=== PATIENT | male | born 2000 | race Caucasian/White ===

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

== ENCOUNTER 2022-02-07 04:24 | Emergency (ER) | payer MEDICAID ==
[2022-02-07] MEDS ORDERED: LACTATED RINGERS 1,000 ML IV STA (04:41)
[2022-02-07] MEDS ORDERED: diphenhydrAMINE 50 MG/ML INJ (BENADRYL) IM ONE (04:45)
[2022-02-07] MEDS ORDERED: MIDAZOLAM 2 MG/2 ML (VERSED) VIAL IM ONE (04:45)
[2022-02-07] MEDS ORDERED: HALOPERIDOL 5 MG/ML (HALDOL) VIAL IM ONE (04:45)
--- NOTE | 2022-02-07 04:48 | ED General ---
General Stated Complaint: AMS Source of Information: Patient, EMS Exam Limitations: Intoxication (ROGE CAI MD) History of Present Illness Date Seen by Provider: Feb 07, 2022 Time Seen by Provider: 04:28 Initial Comments 21-year-old male with no pertinent past medical history brought in via EMS naked and intoxicated. The patient apparently knocked on a strangers door trying to get inside and they called 911. He was obviously intoxicated on EMS arrival, essentially obtunded. They did a sternal rub and he became very agitated requiring multiple males to hold him down. He received 5 mg of IM Ativan which helped somewhat. Woke back up and became agitated again when he felt the cold air. The patient is denying any drug use. He is denying any symptoms at this time including any pain anywhere. (ROGE CAI MD) Allergies and Home Medications Allergies Coded Allergies: Penicillins (Verified Allergy, Unknown, 02/07/22) Patient Home Medication List Home Medication List Reviewed: Yes (ROGE CAI MD) Amoxicillin (Amoxicillin) 500 Mg Capsule, 1 EACH PO TID Prescribed by: ANIL SAINZ on 10/21/122007 Sodium Chloride ([place] Nasal [place]) 45 Ml Soln, 0 NA UD Prescribed by: ANIL SAINZ on 10/21/122007 Review of Systems Review of Systems Constitutional: No fever EENTM: no symptoms reported Respiratory: no symptoms reported Cardiovascular: no symptoms reported Gastrointestinal: no symptoms reported Genitourinary: no symptoms reported Musculoskeletal: no symptoms reported Skin: no symptoms reported Psychiatric/Neurological: See HPI Hematologic/Lymphatic: No Symptoms Reported Immunological/Allergic: no symptoms reported (ROGE CAI MD) All Other Systems Reviewed Negative Unless Noted: Yes (ROGE CAI MD) Past Tiriesu-Yzlguh-[id number] Hx Patient Social History Substance use?: Yes (ROGE CAI MD) Immunizations Up To Date Tetanus Booster (TDap): Less than 5yrs PED Vaccines UTD: Yes (ROGE CAI MD) Seasonal Allergies Seasonal Allergies: No (ROGE CAI MD) Past Medical History Surgeries: No Respiratory: No Cardiac: No Neurological: No Reproductive Disorders: No Genitourinary: No Gastrointestinal: No Musculoskeletal: No Endocrine: No HEENT: No Cancer: No Anxiety Integumentary: No Blood Disorders: No Adverse Reaction/Blood Tranf: No (ROGE CAI MD) Physical Exam Vital Signs Vital Signs - First Documented 02/07/22 05:32 Pulse 121 Resp 16 B/P (MAP) 126/69 (88) Pulse Ox 99 O2 Delivery Room Air ([facility]) Vital Signs Capillary Refill : (ROGE CAI MD) Height, Weight, BMI Height: 5'0" Weight: 82lbs. oz. 37.619298ib; 22.00 BMI Method:Stated General Appearance: No Apparent Distress, WD/WN, Other (Clinically intoxicated) Eyes: Bilateral Eye Normal Inspection, Bilateral Eye PERRL HEENT: PERRL/EOMI, Normal ENT Inspection, Pharynx Normal Neck: Full Range of Motion, Normal Inspection, Non Tender, Supple Respiratory: Chest Non Tender, Lungs Clear, Normal Breath Sounds, No Accessory Muscle Use, No Respiratory Distress Cardiovascular: Regular Rate, Rhythm, No Edema, Normal Peripheral Pulses Gastrointestinal: Normal Bowel Sounds, Non Tender, Soft; No Distended, No Guarding Back: Normal Inspection, No CVA Tenderness Extremity: Normal Capillary Refill, Normal Inspection, Normal Range of Motion, Non Tender, No Calf Tenderness, No Pedal Edema Neurologic/Psychiatric: Alert, No Motor/Sensory Deficits, Other (Flat affect, slurring speech, appears intoxicated but follows commands) Skin: Normal Color, Warm/Dry Lymphatic: No Adenopathy (ROGE CAI MD) Progress/Results/Core Measures Suspected Sepsis SIRS Temperature: Pulse: Respiratory Rate: Laboratory Tests 02/07/22 04:45: White Blood Count 10.8 Blood Pressure / Mean: Laboratory Tests 02/07/22 04:45: Creatinine 1.31H, Platelet Count 212, Total Bilirubin 0.6 (ROGE CAI MD) Results/Orders Lab Results Laboratory Tests Test 02/07/22 04:45 Range/Units White Blood Count 10.8 4.3-11.0 10^3/uL Red Blood Count 5.24 4.30-5.52 10^6/uL Hemoglobin 16.2 13.3-17.7 g/dL Hematocrit 47 40-54 % Mean Corpuscular Volume 91 80-99 fL Mean Corpuscular Hemoglobin 31 25-34 pg Mean Corpuscular Hemoglobin Concent 34 32-36 g/dL Red Cell Distribution Width 11.9 10.0-14.5 % Platelet Count 212 130-400 10^3/uL Mean Platelet Volume 11.3 9.0-12.2 fL Immature Granulocyte % (Auto) 1 % Neutrophils (%) (Auto) 86 H 42-75 % Lymphocytes (%) (Auto) 7 L 12-44 % Monocytes (%) (Auto) 5 0-12 % Eosinophils (%) (Auto) 0 0-10 % Basophils (%) (Auto) 0 0-10 % Neutrophils # (Auto) 9.3 H 1.8-7.8 10^3/uL Lymphocytes # (Auto) 0.8 L 1.0-4.0 10^3/uL Monocytes # (Auto) 0.6 0.0-1.0 10^3/uL Eosinophils # (Auto) 0.0 0.0-0.3 10^3/uL Basophils # (Auto) 0.0 0.0-0.1 10^3/uL Immature Granulocyte # (Auto) 0.1 0.0-0.1 10^3/uL Neutrophils % (Manual) 85 % Lymphocytes % (Manual) 4 % Monocytes % (Manual) 7 % Band Neutrophils 1 % Reactive Lymphocytes 3 % Blood Morphology Comment NORMAL Urine Color ORANGE Urine Clarity CLEAR Urine pH 6.5 5-9 Urine Specific [place] 1.025 H 1.016-1.022 Urine Protein 1+ H NEGATIVE Urine Glucose (UA) TRACE H NEGATIVE Urine Ketones NEGATIVE NEGATIVE Urine Nitrite NEGATIVE NEGATIVE Urine Bilirubin NEGATIVE NEGATIVE Urine Urobilinogen 1.0 < = 1.0 MG/DL Urine Leukocyte Esterase NEGATIVE NEGATIVE Urine RBC (Auto) 1+ H NEGATIVE Urine RBC NONE /HPF Urine WBC 5-10 H /HPF Urine Squamous Epithelial Cells RARE /HPF Urine Crystals PRESENT H /LPF Urine Amorphous Sediment FEW VIELKA URATES H /LPF Urine Bacteria FEW H /HPF Urine Casts NONE /LPF Urine Mucus NEGATIVE /LPF Urine Other FEW SPERM H /HPF Urine Culture Indicated YES Sodium Level 136 135-145 MMOL/L Potassium Level 3.0 L 3.6-5.0 MMOL/L Chloride Level 104 98-107 MMOL/L Carbon Dioxide Level 13 L 21-32 MMOL/L Anion Gap 19 H 5-14 MMOL/L Blood Urea Nitrogen 8 7-18 MG/DL Creatinine 1.31 H 0.60-1.30 MG/DL Estimat Glomerular Filtration Rate 80 BUN/Creatinine Ratio 6 Glucose Level 249 H 70-105 MG/DL Calcium Level 9.5 8.5-10.1 MG/DL Corrected Calcium 9.3 8.5-10.1 MG/DL Magnesium Level 3.5 H 1.6-2.4 MG/DL Total Bilirubin 0.6 0.1-1.0 MG/DL Aspartate Amino Transf (AST/SGOT) 20 5-34 U/L Alanine Aminotransferase (ALT/SGPT) 25 0-55 U/L Alkaline Phosphatase 90 40-136 U/L Total Protein 8.0 6.4-8.2 GM/DL Albumin 4.3 3.2-4.5 GM/DL Lipase 35 8-78 U/L Salicylates Level < 5.0 L 5.0-20.0 MG/DL Urine Opiates Screen NEGATIVE NEGATIVE Urine Oxycodone Screen NEGATIVE NEGATIVE Urine Methadone Screen NEGATIVE NEGATIVE Urine Propoxyphene Screen NEGATIVE NEGATIVE Acetaminophen Level < 10 L 10-30 UG/ML Urine Barbiturates Screen NEGATIVE NEGATIVE Ur Tricyclic Antidepressants Screen NEGATIVE NEGATIVE Urine Phencyclidine Screen NEGATIVE NEGATIVE Urine Amphetamines Screen POSITIVE H NEGATIVE Urine Methamphetamines Screen POSITIVE H NEGATIVE Urine Benzodiazepines Screen NEGATIVE NEGATIVE Urine Cocaine Screen POSITIVE H NEGATIVE Urine Cannabinoids Screen POSITIVE H NEGATIVE Serum Alcohol < 10 <10 MG/DL (PETER GARCIA DO) My Orders Orders - PETER GARCIA DO Foot, Left, 3 Views (02/07/22 06:11) (PETER GARCIA DO) Medications Given in ED Current Medications Medications Dose Ordered Sig/Anna Route Start Time Stop Time Status Last Admin Dose Admin Diphenhydramine HCl 50 mg ONCE ONCE IM 02/07/22 04:45 02/07/22 04:46 DC 02/07/22 04:28 50 MG Haloperidol Lactate 5 mg ONCE ONCE IM 02/07/22 04:45 02/07/22 04:46 DC 02/07/22 04:28 5 MG Midazolam HCl 2 mg ONCE ONCE IM 02/07/22 04:45 02/07/22 04:46 DC 02/07/22 04:28 2 MG Potassium Chloride 40 meq ONCE ONCE PO 02/07/22 06:15 02/07/22 06:16 DC 12/3/22 08:20 40 MEQ (PETER GARCIA DO) Vital Signs/I&O 02/07/22 02/07/22 05:32 05:32 Pulse 121 Resp 16 B/P (MAP) 126/69 (88) Pulse Ox 99 O2 Delivery Room Air (PETER GARCIA DO) Vital Signs/I&O Capillary Refill : (ROGE CAI MD) Departure Communication (Admissions) I assumed care of the patient at shift change, 0 600. He was sleeping at that time. At about 8:00 we went into check on him and he woke up without difficulty. He is now alert, oriented and states this was all a misunderstanding. He does believe it was all because of intoxication. He has mental capacity is capable to make his own decisions. He denies suicidal, homicidal thoughts or problems and request discharge at this time. He is discharged in otherwise stable condition. X-ray of his toe is negative. Tetanus was updated. (PETER GARCIA DO) Impression Primary Impression: Altered mental status Qualified Codes: R41.82 - Altered mental status, unspecified Additional Impressions: Polysubstance abuse Toe pain, left Disposition: 01 HOME, SELF-CARE Condition: Stable Departure-Patient Inst. Referrals: [facility] (PCP/Family) Primary Care Physician Patient Instructions: Polysubstance Use Disorder Add. Discharge Instructions: Refrain from using illicit substances. Increase your fluids at home, rest. Return to the emergency department for any severe concerns ROEG CAI MD Feb 07, 2022 04:48 PETER GARCIA DO Feb 07, 2022 08:31
[2022-02-07 05:05] LABS: BASOPHILS % (AUTO) 0 % (0-10); EOSINOPHILS % (AUTO) 0 % (0-10); HEMATOCRIT 47 % (40-54); HEMOGLOBIN 16.2 g/dL (13.3-17.7); LYMPHOCYTES # (AUTO) 0.8 10^3/uL (1.0-4.0); LYMPHOCYTES % (AUTO) 7 % (12-44); MEAN CORPUSCULAR HEMOGLOBIN 31 pg (25-34); MEAN CORPUSCULAR HGB CONC 34 g/dL (32-36); MEAN CORPUSCULAR VOLUME 91 fL (80-99); MEAN PLATELET VOLUME 11.3 fL (9.0-12.2); MONOCYTES # (AUTO) 0.6 10^3/uL (0.0-1.0); MONOCYTES % (AUTO) 5 % (0-12); NEUTROPHILS # (AUTO) 9.3 10^3/uL (1.8-7.8); NEUTROPHILS % (AUTO) 86 % (42-75); PLATELET COUNT 212 10^3/uL (130-400); WHITE BLOOD COUNT 10.8 10^3/uL (4.3-11.0)
[2022-02-07 05:13] LABS: BILIRUBIN,URINE NEGATIVE (NEGATIVE); CLARITY,URINE CLEAR; COLOR,URINE ORANGE; GLUCOSE, URINE (UA) TRACE (NEGATIVE); KETONES,URINE NEGATIVE (NEGATIVE); LEUKOCYTE ESTERASE ,URINE NEGATIVE (NEGATIVE); NITRITE,URINE NEGATIVE (NEGATIVE); PH,URINE 6.5 (5-9); PROTEIN,URINE 1+ (NEGATIVE)
[2022-02-07 05:35] LABS: AMPHETAMINE SCREEN, URINE POSITIVE (NEGATIVE); BARBITURATE SCREEN URINE NEGATIVE (NEGATIVE); BENZODIAZEPINES SCREEN URINE NEGATIVE (NEGATIVE); CANNABINOID SCREEN, URINE POSITIVE (NEGATIVE); COCAINE SCREEN URINE POSITIVE (NEGATIVE); METHADONE STAT NEGATIVE (NEGATIVE); OPIATE SCREEN URINE NEGATIVE (NEGATIVE); OXYCODONE STAT NEGATIVE (NEGATIVE); PROPOXYPHENE STAT NEGATIVE (NEGATIVE); TRICYCLIC ANTIDEPRESSANTS SCRE NEGATIVE (NEGATIVE)
[2022-02-07 05:40] LABS: ALANINE AMINOTRANSFERASE 25 U/L (0-55); ALBUMIN 4.3 GM/DL (3.2-4.5); ALKALINE PHOSPHATASE 90 U/L (40-136); BILIRUBIN,TOTAL 0.6 MG/DL (0.1-1.0); BUN/CREATININE RATIO 6; CALCIUM 9.5 MG/DL (8.5-10.1); CARBON DIOXIDE 13 MMOL/L (21-32); CHLORIDE 104 MMOL/L (98-107); CREATININE SERUM 1.31 MG/DL (0.60-1.30); GFR ESTIMATED 80; GLUCOSE 249 MG/DL (70-105); LIPASE 35 U/L (8-78); MAGNESIUM 3.5 MG/DL (1.6-2.4); SALICYLATE < 5.0 MG/DL (5.0-20.0); SODIUM 136 MMOL/L (135-145)
[2022-02-07 05:42] LABS: ACETAMINOPHEN < 10 UG/ML (10-30)
[2022-02-07 06:00] LABS: AMORPHOUS SEDIMENT,UR FEW AMOR URATES /LPF; BACTERIA,URINE FEW /HPF; SQUAMOUS EPITHELIAL CELL,UR RARE /HPF
[2022-02-07 06:01] LABS: URINE OTHER FEW SPERM /HPF
[2022-02-07] MEDS ORDERED: KCL 20 MEQ TAB (K-DUR) PO ONE (06:15)
[2022-02-07 06:29] LABS: BAND NEUTROPHILS 1 %; LYMPHOCYTES % (MANUAL) 4 %; MONOCYTES % (MANUAL) 7 %; NEUTROPHILS % (MANUAL) 85 %; RBC MORPH NORMAL; REACTIVE LYMPHOCYTES 3 %
--- NOTE | 2022-02-07 06:59 | Diagnostic Imaging Report ---
FOOT, LEFT, 3 VIEWS INDICATION: Left foot pain COMPARISON: None available. TECHNIQUE: Three non-weightbearing views of foot were obtained. FINDINGS: No fracture or traumatic malalignment. No evidence of metatarsal stress fracture. No soft tissue swelling. IMPRESSION: 1. No acute fracture or traumatic malalignment. Dictated by: Dictated on workstation # [id number]
[2022-02-07] MEDS ORDERED: TETANUS,DIPTH,PERTUSS P/F (BOOSTRIX) 0.5 ML VIAL IM ONE (08:45)
[2022-02-07 08:47] VITALS: BP 144/48
== END 2022-02-07 08:00 | disposition home or self-care (01) ==
LOC: EDUNIT# 04:24 → ER 04:27
DX: R41.82 Altered mental status, unspecified (principal); F19.10 Other psychoactive substance abuse, uncomplicated; M79.675 Pain in left toe(s); F10.129 Alcohol abuse with intoxication, unspecified; Z23 Encounter for immunization; Y90.0 Blood alcohol level of less than 20 mg/100 ml
CPT/HCPCS: 51701; 73630; 80053; 80306; 81000; 83690; 83735; 85007; 85027; 87088; 99284; G0480 ×3; 36415; 80320; 80329; 90715